=== PATIENT | female | born 1995 | race Caucasian/White ===

== ENCOUNTER 2017-04-26 16:44 | Emergency (ER) | payer BC ==
[~2017-04-26] VITALS: Ht 172.7 cm; Wt 65.8 kg
--- NOTE | 2017-04-26 21:54 | NUR ---
Methotrexate for ectopic . Dosed at 50mg/m2 = 50mg/1.78m2 = 90mg dose. Methotrexate 90mg/D5W 50ml over 15 mins. Pretreat with ondansetron 8mg iv
[2017-05-07] MEDS ORDERED: TYLENOL325 MG PO (23:33)
[2017-05-07] MEDS ORDERED: IBUPROFEN800 MG PO (23:34)
== END 2017-04-26 23:55 | disposition home or self-care (01) ==
LOC: ED 16:44
DX: O00.90 Unspecified ectopic pregnancy without intrauterine pregnancy (principal); F17.200 Nicotine dependence, unspecified, uncomplicated
CPT/HCPCS: 76801; 76817; 80048; 84702; 85025; 86900; 86901; 96374; 96375; 99284; J2405; J9260

== ENCOUNTER → 2017-05-07 | Emergency (ER) | payer BC ==
[~2017-05-07] VITALS: Ht 172.7 cm; Wt 65.8 kg
[~2017-05-07] MED LIST: IBUPROFEN800 MG PO; TYLENOL325 MG PO
== END ==
LOC: ED 23:13
DX: O00.90 Unspecified ectopic pregnancy without intrauterine pregnancy (principal); F17.200 Nicotine dependence, unspecified, uncomplicated
CPT/HCPCS: 84702; 99283